=== PATIENT | male | born 1955 | race Caucasian/White ===

== ENCOUNTER 2018-06-28 09:23 | Day surgery (SDC) | payer OTHER ==
[2018-06-27 12:16] VITALS: BMI 31.4
--- NOTE | 2018-06-28 10:28 | HP ---
History & Physical Update - History History: No Change - Physical Physical: No Change - Assessment Assessment: No Change - Plan Plan: No Change (Initial H&P is complete and accurate from 06/23/18. Located in patien't s paper chart. No new complaints or medications. Here today for elective bilateral orchiechtomy w/ Dr. Orr.)
[2018-06-28] MEDS ORDERED: PROPOFOL 20 ML ONE ×2 (12:15)
[2018-06-28] MEDS ORDERED: LIDOCAINE HCL/PF 2% SDV 5ML VIAL ONE (12:15)
[2018-06-28] MEDS ORDERED: ceFAZolin SODIUM 1 GM VIAL IVPB ONE (12:35)
[2018-06-28] MEDS ORDERED: DEXAMETHASONE SOD PHOSPHATE 4 MG/1 ML VIAL ONE (12:42)
[2018-06-28] MEDS ORDERED: ceFAZolin SODIUM 1 GM VIAL ONE (12:42)
[2018-06-28] MEDS ORDERED: GLYCOPYRROLATE 0.2 MG/1 ML VIAL ONE (12:48)
[2018-06-28] MEDS ORDERED: ACETAMINOPHEN INJECTION 100 ML IVPB ONE (12:57)
[2018-06-28] MEDS ORDERED: ONDANSETRON 4 MG/2 ML VIAL IVPUSH PRN (13:04)
[2018-06-28] MEDS ORDERED: KETOROLAC TROMETHAMINE 30 MG/1 ML VIAL ONE (13:08)
[2018-06-28] MEDS ORDERED: METOPROLOL TARTRATE 5 MG/5 ML VIAL ONE (13:10)
[2018-06-28] MEDS ORDERED: BUPIVACAINE HCL/PF 0.5% (5MG/ML) 10 ML VIAL ONE (13:11)
[2018-06-28] MEDS ORDERED: LACTATED RINGERS SOLUTION 1,000 ML IV SCH (13:15)
[2018-06-28] MEDS ORDERED: BUPIVACAINE HCL/PF (5 MG/ML) 30 ML VIAL IJ ONE (13:20)
--- NOTE | 2018-06-28 13:42 | OP ---
Operative Note - Note: Operative Date: 06/28/18 Pre-Operative Diagnosis: Prostate Cancer (recurrent) Operation: Bilateral orchiectomy Post-Operative Diagnosis: Same as Pre-op Surgeon: John Orr Electric Dolly Operator: Pepito Gomez Anesthesiologist/POLICE DETECTIVE: Danielle Henley Anesthesia: General Specimens Removed: bilateral testis Estimated Blood Loss (mls): 5 Fluid Volume Replaced (mls): 400 Operative Report Dictated: Yes
--- NOTE | 2018-06-28 13:43 | SURG ---
Surgery Mat Cutter Note Mat Cutter: Pepito Gomez PA-C Date of Service: 06/28/18 Diagnosis: Prostate Cancer (recurrent) Procedure: Bilateral orchiectomy I was present for the entirety of the operative procedure. For further detail, please refer to operative report. Visit type - Case Type Case Type: Scheduled - New patient This patient is new to me today: Yes Date on this admission: 06/28/18
--- NOTE | 2018-06-28 14:09 | OP ---
DATE OF OPERATION: 06/28/2018 PREOPERATIVE DIAGNOSIS: Metastatic prostate cancer. POSTOPERATIVE DIAGNOSIS: Metastatic prostate cancer. PROCEDURE: Bilateral orchiectomy. ATTENDING SURGEON: John Orr MD. CO-PUNCH OPERATOR: TOMMY Najera. ANESTHESIA: General by LMA. Patient was forwarded to the operating room. SCDs were on the lower extremities. A time-out was performed. IV Ancef was then administered. The scrotum was then prepped and draped in the usual sterile fashion. A small incision was made first over with right hemiscrotum through the skin and dartos until the testis was identified and then brought through the incision. A Lesia clamp was placed through the cord the fatty part of the cord. An additional Lesia was placed the vas and the vasculature. The testis was then excised. Three separate suture ligatures followed by three 2-0 Vicryl ties were placed on each part of the cord. The cord was then examined and any oozing was fulgurated. The cord was then dropped back in the subcutaneous tissue and dartos was then closed with a running 3-0 chromic and the skin brought together with a vertical mattress 3-0 chromic suture. Attention was then directed to the left side where again an incision was made through the skin, dartos, and subcutaneous tissues until the testis was identified and then again brought through the incision. The cord was then divided with a Lesia into 3 separate sections, the vasculature, the vas, and the fatty part of the cord. The testis was excised and the 3 parts of the cord were then separately ligated with a 2-0 Vicryl suture ligature followed by a 2-0 Vicryl tie. Again, the area was examined for any oozing which was fulgurated. The dartos and subcutaneous tissue were brought together with a running 3-0 chromic and the skin brought together with interrupted 3-0 vertical mattress sutures of 3-0 chromic as well. Estimated blood loss for the procedure was minimal. No complications. The patient was also given 15 mL of 0.5% of Marcaine in the upper aspect of the scrotum on the left and on the right side. A sterile dressing was placed over the wound. The patient tolerated the procedure well and left the OR in stable satisfactory condition. MD RICHIE IRBY/[id number]
[2018-06-28 15:32] VITALS: BP 127/80; PULSE 79; TEMP 97.4
--- NOTE | 2018-07-03 13:57 | PATH ---
Surgical Pathology Report Patient Name: CHELSI NGUYEN [facility]. Rec. #: [id number] /Age/Gender: 1955 (Age: 63) / M Account: [id number] Location: [facility] SURGICAL Taken: 06/28/2018 Received: 06/29/2018 Reported: 07/03/2018 Physicians: John Orr MD Specimen(s) Received A: RIGHT TESTICLES B: LEFT TESTICLES Clinical History Metastatic prostate cancer Final Diagnosis A. RIGHT TESTICLE, ORCHIECTOMY: ATROPHIC TESTIS AND EPIDIDYMIS. B. LEFT TESTICLE, ORCHIECTOMY: ATROPHIC TESTIS AND EPIDIDYMIS. Electronically Signed Mariangel Martinez M.D. Gross Description A. Received in formalin labeled "right testicle," is a 14 g orchiectomy specimen including a 3.0 x 1.8 x 1.4 cm testicle with an attached 3.2 x 0.8 x 0.6 cm epididymis and a 3 cm in length attached portion of spermatic cord. The outer surface is jerome and intact. Sectioning reveals unremarkable testicular parenchyma with foci of possible fibrosis. [employer] sections are submitted in 5 cassettes as follows: 1-spermatic cord margin of resection; 2-testicular parenchyma with epididymis; 3-testicular parenchyma with rete testis; 2-6-[id number] testicular parenchyma to outer capsule. B. Received in formalin labeled "left testicle," is a 16 g orchiectomy specimen including a 3.0 x 2.0 x 1.2 cm testicle with an attached 3.2 x 1.1 x 0.8 cm epididymis and a 3.5 cm in length attached portion of spermatic cord. The outer surface is jerome and intact. Sectioning reveals unremarkable testicular parenchyma. [employer] sections are submitted in 5 cassettes as follows: 1-spermatic cord margin of resection; 2-testicular parenchyma with epididymis; 3-testicular parenchyma with rete testis; 4-1-[id number] testicular parenchyma to outer capsule. 06/29/201806/29/2018
== END 2018-06-28 16:00 | disposition home or self-care (01) ==
LOC: JASU-SURG 09:23
PROVIDERS: ATTEND Urology
PROC: 0VR Male Reproductive System, Replacement (ICD-10-PCS; principal; 2018-06-28 09:00)
DX: C61 Malignant neoplasm of prostate (principal); I10 Essential (primary) hypertension; G47.30 Sleep apnea, unspecified; J44.9 Chronic obstructive pulmonary disease, unspecified
CPT/HCPCS: 88305-TC; 94760; J0131

== ENCOUNTER 2022-05-23 01:12 | Inpatient (IN) | payer OTHER ==
[2022-05-23 01:34] VITALS: BMI 21.8
[2022-05-23 01:56] LABS: VENOUS BASE EXCESS 2.7 mmol/L (-2-2); VENOUS O2 SATURATION 88.2 % (70-80); VENOUS PCO2 44.4 mmHg (38-52); VENOUS PH 7.414 (7.310-7.410)
[2022-05-23 02:08] LABS: BASO % 0.7 % (0-2.0); EOS % 4.7 % (0-4.5); HEMATOCRIT 38.2 % (35.4-49); HEMOGLOBIN 12.8 GM/dL (11.7-16.9); LYMPH % 2.2 % (8-40); MCH 30.7 pg (25.7-33.7); MCHC 33.4 g/dl (32.0-35.9); MEAN PLT VOLUME 8.3 fl (7.5-11.1); MONO % 10.1 % (3.8-10.2); NEUT % 82.3 % (42.8-82.8); PLATELET COUNT 317 10^3/uL (134-434); RBC 4.16 M/mm3 (4.00-5.60); RDW 14.2 % (11.9-15.9); WHITE BLOOD COUNT 7.7 K/mm3 (4.0-10.0)
[2022-05-23 02:15] LABS: INR 1.57 (0.83-1.09); PROTHROMBIN TIME (PATIENT) 18.1 SEC (9.7-13.0)
[2022-05-23 02:18] LABS: ACTIVATED PTT 31.3 SECONDS (25.2-36.5); ALBUMIN 1.8 g/dl (3.4-5.0); BLOOD UREA NITROGEN 20.6 mg/dL (7-18); MAGNESIUM 1.6 mg/dL (1.8-2.4)
[2022-05-23 02:21] LABS: CREATININE 0.8 mg/dL (0.55-1.3)
[2022-05-23 02:22] LABS: BILIRUBIN,TOTAL 0.2 mg/dL (0.2-1); TOT PROT 4.8 g/dl (6.4-8.2)
[2022-05-23] MEDS ORDERED: SODIUM CHLORIDE 0.9% 500 ML INFUS.BAG IV ONE (03:29)
[2022-05-23] MEDS ORDERED: MAGNESIUM 1GM/D5W - 1 GM/100 ML IVPB IVPB ONE (04:16)
[2022-05-23 08:35] VITALS: RESP 20; TEMP 97.9
[2022-05-23 11:57] VITALS: BP 104/78; PULSE 107
== END 2022-05-23 11:59 | DRG 920 ==
LOC: JER 01:12 → JERBED 01:15
PROVIDERS: ADMIT Internal Medicine; ATTEND Internal Medicine
DX: T85.898A Other specified complication of other internal prosthetic devices, implants and grafts, initial encounter (principal); J90 Pleural effusion, not elsewhere classified; J98.11 Atelectasis; I25.10 Atherosclerotic heart disease of native coronary artery without angina pectoris; I10 Essential (primary) hypertension; E03.9 Hypothyroidism, unspecified; G47.33 Obstructive sleep apnea (adult) (pediatric); C61 Malignant neoplasm of prostate; Y84.8 Other medical procedures as the cause of abnormal reaction of the patient, or of later complication, without mention of misadventure at the time of the procedure; Z86.711 Personal history of pulmonary embolism
CPT/HCPCS: 0241U-QW; 36415; 71045-TC-FY; 71275-TC; 80053; 82550; 82803; 83735; 84484; 85025; 85610; 85730; 86850; 86900; 86901; 93005; 93010; 99285-25; Q9967

== ENCOUNTER 2022-05-27 22:27 | Inpatient (IN) | payer OTHER ==
[2022-05-27] MEDS ORDERED: SODIUM CHLORIDE 2,313 ML IV ONE (22:44)
[2022-05-27 23:10] LABS: VENOUS BASE EXCESS 3.9 mmol/L (-2-2); VENOUS O2 SATURATION 81.9 % (70-80); VENOUS PCO2 67.4 mmHg (38-52); VENOUS PH 7.303 (7.310-7.410)
[2022-05-27 23:13] LABS: BASO % 0.6 % (0-2.0); EOS % 0.4 % (0-4.5); HEMATOCRIT 42.9 % (35.4-49); HEMOGLOBIN 14.3 GM/dL (11.7-16.9); LYMPH % 1.4 % (8-40); MCH 30.9 pg (25.7-33.7); MCHC 33.4 g/dl (32.0-35.9); MEAN CELL VOLUME 92.6 fl (80-96); MEAN PLT VOLUME 8.4 fl (7.5-11.1); MONO % 8.3 % (3.8-10.2); NEUT % 89.3 % (42.8-82.8); PLATELET COUNT 311 10^3/uL (134-434); RBC 4.64 M/mm3 (4.00-5.60); RDW 13.8 % (11.9-15.9); WHITE BLOOD COUNT 9.6 K/mm3 (4.0-10.0)
[2022-05-27 23:22] LABS: INR 1.97 (0.83-1.09); PROTHROMBIN TIME (PATIENT) 22.7 SEC (9.7-13.0)
[2022-05-27 23:24] LABS: ACTIVATED PTT 34.6 SECONDS (25.2-36.5)
[2022-05-27 23:42] LABS: CHLORIDE 105 mmol/L (98-107); SODIUM 141 mmol/L (136-145)
[2022-05-27 23:44] LABS: CALCIUM 9.3 mg/dL (8.5-10.1)
[2022-05-27 23:45] LABS: ALBUMIN 1.9 g/dl (3.4-5.0); ANION GAP 4 MMOL/L (8-16); CO2 31 mmol/L (21-32); GLUCOSE,RANDOM 118 mg/dL (74-106)
[2022-05-27 23:48] LABS: CREATININE 0.7 mg/dL (0.55-1.3); SGOT/AST 34 U/L (15-37); SGPT/ALT 16 U/L (13-61)
[2022-05-27 23:50] LABS: BILIRUBIN,TOTAL 0.5 mg/dL (0.2-1); TOT PROT 5.3 g/dl (6.4-8.2)
[2022-05-27 23:51] LABS: ALK PHOS 127 U/L (45-117)
[2022-05-28] MEDS ORDERED: PIPERACILLIN/TAZOB 3.375 GM 3.375 GM in DEXTROSE 5%-WATER - 50 ML IVPB ONE (00:35)
[2022-05-28] MEDS ORDERED: VANCOMYCIN 1 GM in D5W (PRE-DOCKED) 1,000 MG/250 ML IVPB ONE (00:35)
[2022-05-28] MEDS ORDERED: VANCOMYCIN/WATER FOR INJ (PEG) 1,000 MG/200 ML BAG IVPB ONE (00:43)
[2022-05-28] MEDS ORDERED: PIPERACILLIN/TAZOB 3.375 GM 3.375 GM/50 ML BAG IVPB ONE (00:43)
[2022-05-28 05:21] LABS: ARTERIAL BLD GAS O2 SATURATION 96.9 % (95-98); ARTERIAL BLOOD GAS BASE EXCESS -2.4 mmol/L (-2-2); ARTERIAL BLOOD GAS PO2 105.8 mmHg (80-100); ARTERIAL BLOOD GAS pH 7.255 (7.350-7.450)
[2022-05-28] MEDS ORDERED: ACETAMINOPHEN 325 MG TABLET (FP) PO PRN (05:22)
[2022-05-28] MEDS ORDERED: MAGNESIUM HYDROX 2400MG/30ML ORAL SUSPENSION 30 ML CUP PO PRN (05:22)
[2022-05-28] MEDS ORDERED: POLYETHYLENE GLYCOL (HEALTHYLAX) 3350 17 GM PACKET PO PRN (05:22)
[2022-05-28 05:31] LABS: ALLENS TEST POSITIVE
[2022-05-28 05:32] LABS: VENT MODE S/T; VENT RATE 14
[2022-05-28] MEDS ORDERED: LACTULOSE 20 GM/30 ML UDC (FOR ORAL USE ONLY) PO PRN (06:24)
[2022-05-28 06:30] LABS: BASO % 0.2 % (0-2.0); HEMOGLOBIN 13.2 GM/dL (11.7-16.9); LYMPH % 1.6 % (8-40); MCH 31.7 pg (25.7-33.7); MCHC 33.9 g/dl (32.0-35.9); MEAN CELL VOLUME 93.6 fl (80-96); MEAN PLT VOLUME 8.7 fl (7.5-11.1); MONO % 9.2 % (3.8-10.2); PLATELET COUNT 272 10^3/uL (134-434); RBC 4.17 M/mm3 (4.00-5.60); RDW 13.8 % (11.9-15.9); WHITE BLOOD COUNT 7.9 K/mm3 (4.0-10.0)
[2022-05-28 06:53] LABS: CALCIUM 9.3 mg/dL (8.5-10.1)
[2022-05-28 06:54] LABS: ALBUMIN 1.8 g/dl (3.4-5.0); BLOOD UREA NITROGEN 17.2 mg/dL (7-18); MAGNESIUM 1.6 mg/dL (1.8-2.4)
[2022-05-28 06:57] LABS: CREATININE 0.7 mg/dL (0.55-1.3); PHOSPHOROUS 3.9 mg/dL (2.5-4.9)
[2022-05-28 06:58] LABS: BILIRUBIN,TOTAL 0.4 mg/dL (0.2-1); TOT PROT 4.8 g/dl (6.4-8.2)
[2022-05-28] MEDS ORDERED: MAG HYDROX/AL HYDROX/SIMETH 30 ML UNIT-DOSE CUP ONE (09:48)
[2022-05-28] MEDS: FUROSEMIDE 20 MG TABLET (FP) PO SCH (11:17)
[2022-05-28] MEDS: ASPIRIN 81 MG CHEWABLE TABLETS PO SCH (11:17)
[2022-05-28] MEDS: ESCITALOPRAM OXALATE 10 MG TABLET PO SCH (11:17)
[2022-05-28] MEDS: APIXABAN 5 MG TABLET PO SCH ×2 (11:17→21:25)
[2022-05-28] MEDS: PANTOPRAZOLE 40 MG TABLET PO SCH (11:17)
[2022-05-28] MEDS: MIDODRINE HCL 5 MG TABLET PO SCH ×3 (14:52→18:28)
[2022-05-28 16:16] VITALS: BMI 21.8
[2022-05-28] MEDS: ATORVASTATIN CA 20 MG TABLET (FP) PO SCH (21:25)
[2022-05-28] MEDS: MIRTAZAPINE 15 MG TABLET (FP) PO SCH (21:25)
[2022-05-29] MEDS: LEVOTHYROXINE NA 25 MCG TABLET (FP) PO SCH (06:15)
[2022-05-29 06:47] LABS: EPI CELLS 7 /uL (0-25.1); HYALINE CASTS 1 /uL (0-3.1); PH,URINE 5.5 (5.0-8.0); URINE APPEARANCE CLEAR; URINE BACTERIA 5 /uL (0-1359); URINE BILIRUBIN NEGATIVE (NEGATIVE); URINE COLOR YELLOW; URINE GLUCOSE (UA) NEGATIVE (NEGATIVE); URINE KETONE NEGATIVE (NEGATIVE); URINE LEUK ESTERASE NEGATIVE (NEGATIVE); URINE NITRITE NEGATIVE (NEGATIVE); URINE PROTEIN 1+ (NEGATIVE); URINE RBC 13 /uL (0-23.9); URINE UROBILINOGEN 0.2 mg/dL (0.2-1.0); URINE WBC 24 /uL (0-25.8)
[2022-05-29 08:50] LABS: BASO % 1.1 % (0-2.0); EOS % 0.8 % (0-4.5); HEMATOCRIT 37.6 % (35.4-49); HEMOGLOBIN 12.3 GM/dL (11.7-16.9); LYMPH % 1.7 % (8-40); MCH 30.6 pg (25.7-33.7); MCHC 32.8 g/dl (32.0-35.9); MEAN CELL VOLUME 93.1 fl (80-96); MEAN PLT VOLUME 8.7 fl (7.5-11.1); MONO % 10.7 % (3.8-10.2); NEUT % 85.7 % (42.8-82.8); PLATELET COUNT 282 10^3/uL (134-434); RBC 4.04 M/mm3 (4.00-5.60); RDW 14.1 % (11.9-15.9); WHITE BLOOD COUNT 7.4 K/mm3 (4.0-10.0)
[2022-05-29 09:06] LABS: ALBUMIN 1.8 g/dl (3.4-5.0); CALCIUM 9.7 mg/dL (8.5-10.1); MAGNESIUM 1.5 mg/dL (1.8-2.4)
[2022-05-29 09:09] LABS: CREATININE 0.7 mg/dL (0.55-1.3)
[2022-05-29 09:11] LABS: BILIRUBIN,TOTAL 0.7 mg/dL (0.2-1); TOT PROT 4.7 g/dl (6.4-8.2)
[2022-05-29] MEDS: APIXABAN 5 MG TABLET PO SCH ×2 (09:31→21:29)
[2022-05-29] MEDS: ASPIRIN 81 MG CHEWABLE TABLETS PO SCH (09:31)
[2022-05-29] MEDS: ESCITALOPRAM OXALATE 10 MG TABLET PO SCH (09:31)
[2022-05-29] MEDS: PANTOPRAZOLE 40 MG TABLET PO SCH (09:31)
[2022-05-29] MEDS: FUROSEMIDE 20 MG TABLET (FP) PO SCH (09:31)
[2022-05-29] MEDS: MIDODRINE HCL 5 MG TABLET PO SCH ×3 (09:33→17:54)
[2022-05-29] MEDS: FLUTICASONE/UMECLIDIN/VILANTER(200-62.5-25 TRELEGY ELLIPTA) INAHLER IH SCH (10:46)
[2022-05-29 11:05] LABS: YEAST PRESENT (NEGATIVE)
[2022-05-29 11:06] LABS: URINE CRYSTALS PRESENT /hpf
[2022-05-29] MEDS: MIRTAZAPINE 15 MG TABLET (FP) PO SCH (21:29)
[2022-05-29] MEDS: ATORVASTATIN CA 20 MG TABLET (FP) PO SCH (21:29)
[2022-05-30] MEDS: LEVOTHYROXINE NA 25 MCG TABLET (FP) PO SCH (07:23)
[2022-05-30] MEDS: ASPIRIN 81 MG CHEWABLE TABLETS PO SCH (09:01)
[2022-05-30] MEDS: APIXABAN 5 MG TABLET PO SCH ×2 (09:02→21:32)
[2022-05-30] MEDS: ESCITALOPRAM OXALATE 10 MG TABLET PO SCH (09:02)
[2022-05-30] MEDS: MIDODRINE HCL 5 MG TABLET PO SCH ×3 (09:02→17:42)
[2022-05-30] MEDS: FUROSEMIDE 20 MG TABLET (FP) PO SCH (09:02)
[2022-05-30] MEDS: PANTOPRAZOLE 40 MG TABLET PO SCH (09:02)
[2022-05-30] MEDS: FLUTICASONE/UMECLIDIN/VILANTER(200-62.5-25 TRELEGY ELLIPTA) INAHLER IH SCH (09:08)
[2022-05-30] MEDS: SODIUM CHLORIDE NASAL SPRAY 44 ML BOTTLE NS PRN (18:08)
[2022-05-30] MEDS: ATORVASTATIN CA 20 MG TABLET (FP) PO SCH (21:32)
[2022-05-30] MEDS: MIRTAZAPINE 15 MG TABLET (FP) PO SCH (21:32)
[2022-05-31 08:35] LABS: HEMOGLOBIN 12.3 GM/dL (11.7-16.9); MCH 31.7 pg (25.7-33.7); MCHC 34.3 g/dl (32.0-35.9); MEAN CELL VOLUME 92.4 fl (80-96); MEAN PLT VOLUME 8.8 fl (7.5-11.1); PLATELET COUNT 301 10^3/uL (134-434); WHITE BLOOD COUNT 8.7 K/mm3 (4.0-10.0)
[2022-05-31 09:21] LABS: CALCIUM 9.6 mg/dL (8.5-10.1)
[2022-05-31 09:22] LABS: ALBUMIN 1.5 g/dl (3.4-5.0); BLOOD UREA NITROGEN 15.1 mg/dL (7-18); MAGNESIUM 1.6 mg/dL (1.8-2.4)
[2022-05-31 09:25] LABS: CREATININE 0.6 mg/dL (0.55-1.3); PHOSPHOROUS 2.9 mg/dL (2.5-4.9)
[2022-05-31 09:26] LABS: BILIRUBIN,TOTAL 0.6 mg/dL (0.2-1); TOT PROT 4.8 g/dl (6.4-8.2)
[2022-05-31] MEDS: ASPIRIN 81 MG CHEWABLE TABLETS PO SCH (11:32)
[2022-05-31] MEDS: FUROSEMIDE 20 MG TABLET (FP) PO SCH (11:32)
[2022-05-31] MEDS: ESCITALOPRAM OXALATE 10 MG TABLET PO SCH (11:32)
[2022-05-31] MEDS: PANTOPRAZOLE 40 MG TABLET PO SCH (11:32)
[2022-05-31] MEDS: APIXABAN 5 MG TABLET PO SCH (11:32)
[2022-05-31] MEDS: MIDODRINE HCL 5 MG TABLET PO SCH ×3 (11:33→18:17)
[2022-05-31] MEDS: FLUTICASONE/UMECLIDIN/VILANTER(200-62.5-25 TRELEGY ELLIPTA) INAHLER IH SCH (11:33)
[2022-05-31] MEDS: SODIUM CHLORIDE NASAL SPRAY 44 ML BOTTLE NS PRN (11:40)
[2022-05-31] MEDS ORDERED: ENOXAPARIN NA (PORCINE) 80 MG/0.8 ML DISP.SYRIN SQ SCH (22:00)
[2022-05-31] MEDS: ENOXAPARIN NA (PORCINE) 80 MG/0.8 ML DISP.SYRIN SQ SCH (23:03)
[2022-05-31] MEDS: ATORVASTATIN CA 20 MG TABLET (FP) PO SCH (23:03)
[2022-05-31] MEDS: MIRTAZAPINE 15 MG TABLET (FP) PO SCH (23:03)
[2022-06-01] MEDS: LEVOTHYROXINE NA 25 MCG TABLET (FP) PO SCH (06:21)
[2022-06-01] MEDS ORDERED: FUROSEMIDE 20 MG TABLET (FP) PO SCH (08:34)
[2022-06-01] MEDS: ESCITALOPRAM OXALATE 10 MG TABLET PO SCH (09:08)
[2022-06-01] MEDS: ASPIRIN 81 MG CHEWABLE TABLETS PO SCH (09:08)
[2022-06-01] MEDS: ENOXAPARIN NA (PORCINE) 80 MG/0.8 ML DISP.SYRIN SQ SCH (09:08)
[2022-06-01] MEDS: MIDODRINE HCL 5 MG TABLET PO SCH ×3 (09:09→17:38)
[2022-06-01] MEDS: FLUTICASONE/UMECLIDIN/VILANTER(200-62.5-25 TRELEGY ELLIPTA) INAHLER IH SCH (09:09)
[2022-06-01] MEDS: PANTOPRAZOLE 40 MG TABLET PO SCH (09:09)
[2022-06-01] MEDS: SODIUM CHLORIDE NASAL SPRAY 44 ML BOTTLE NS PRN (09:10)
[2022-06-01 09:42] LABS: BASO % 0.5 % (0-2.0); EOS % 0.9 % (0-4.5); HEMATOCRIT 35.9 % (35.4-49); HEMOGLOBIN 11.8 GM/dL (11.7-16.9); LYMPH % 1.4 % (8-40); MCH 30.4 pg (25.7-33.7); MCHC 32.8 g/dl (32.0-35.9); MEAN CELL VOLUME 92.7 fl (80-96); MONO % 9.7 % (3.8-10.2); NEUT % 87.5 % (42.8-82.8); PLATELET COUNT 311 10^3/uL (134-434); RBC 3.87 M/mm3 (4.00-5.60); WHITE BLOOD COUNT 7.4 K/mm3 (4.0-10.0)
[2022-06-01 10:09] LABS: ALBUMIN 1.4 g/dl (3.4-5.0); BLOOD UREA NITROGEN 17.5 mg/dL (7-18); CALCIUM 9.3 mg/dL (8.5-10.1); MAGNESIUM 1.6 mg/dL (1.8-2.4)
[2022-06-01 10:12] LABS: CREATININE 0.7 mg/dL (0.55-1.3); PHOSPHOROUS 2.2 mg/dL (2.5-4.9)
[2022-06-01 10:14] LABS: BILIRUBIN,TOTAL 0.4 mg/dL (0.2-1); TOT PROT 4.5 g/dl (6.4-8.2)
[2022-06-01] MEDS: AMINO ACIDS 4.25%/D5W 1,000 ML IV SCH (13:26)
[2022-06-01] MEDS ORDERED: MAGNESIUM SULF 50% (8.12 MEQ/2 ML-1 GM VIAL) IVPB ONE (13:34)
[2022-06-01] MEDS: ATORVASTATIN CA 20 MG TABLET (FP) PO SCH (21:21)
[2022-06-01] MEDS: MIRTAZAPINE 15 MG TABLET (FP) PO SCH (21:21)
[2022-06-02 01:12] VITALS: RESP 18
[2022-06-02] MEDS ORDERED: ONDANSETRON 4 MG/2 ML VIAL IVPUSH ONE (02:45)
[2022-06-02 09:23] LABS: BASO % 0.3 % (0-2.0); EOS % 0.3 % (0-4.5); HEMATOCRIT 35.7 % (35.4-49); HEMOGLOBIN 12.1 GM/dL (11.7-16.9); LYMPH % 1.2 % (8-40); MCHC 33.8 g/dl (32.0-35.9); MEAN CELL VOLUME 91.9 fl (80-96); MEAN PLT VOLUME 8.6 fl (7.5-11.1); MONO % 11.6 % (3.8-10.2); NEUT % 86.6 % (42.8-82.8); PLATELET COUNT 309 10^3/uL (134-434); RBC 3.89 M/mm3 (4.00-5.60); RDW 14.2 % (11.9-15.9); WHITE BLOOD COUNT 8.5 K/mm3 (4.0-10.0)
[2022-06-02 09:44] LABS: ALBUMIN 1.4 g/dl (3.4-5.0); CALCIUM 9.3 mg/dL (8.5-10.1); MAGNESIUM 1.9 mg/dL (1.8-2.4)
[2022-06-02 09:47] LABS: CREATININE 0.7 mg/dL (0.55-1.3); PHOSPHOROUS 1.8 mg/dL (2.5-4.9)
[2022-06-02 09:49] LABS: TOT PROT 4.5 g/dl (6.4-8.2)
[2022-06-02 09:51] LABS: BILIRUBIN,TOTAL 0.4 mg/dL (0.2-1)
[2022-06-02] MEDS: PANTOPRAZOLE 40 MG TABLET PO SCH (10:18)
[2022-06-02] MEDS: ESCITALOPRAM OXALATE 10 MG TABLET PO SCH (10:18)
[2022-06-02] MEDS: ASPIRIN 81 MG CHEWABLE TABLETS PO SCH (10:18)
[2022-06-02] MEDS: FLUTICASONE/UMECLIDIN/VILANTER(200-62.5-25 TRELEGY ELLIPTA) INAHLER IH SCH (10:18)
[2022-06-02] MEDS: MIDODRINE HCL 5 MG TABLET PO SCH ×3 (10:18→17:26)
[2022-06-02] MEDS ORDERED: ENOXAPARIN NA (PORCINE) 80 MG/0.8 ML DISP.SYRIN SQ SCH (10:45)
[2022-06-02 12:23] LABS: ARTERIAL BLD GAS O2 SATURATION 95.5 % (95-98); ARTERIAL BLOOD GAS BASE EXCESS 6.6 mmol/L (-2-2); ARTERIAL BLOOD GAS PO2 76.7 mmHg (80-100); ARTERIAL BLOOD GAS pH 7.426 (7.350-7.450)
[2022-06-02 12:24] LABS: ALLENS TEST POSITIVE
[2022-06-02 12:25] LABS: VENT MODE ST; VENT RATE 10
[2022-06-02] MEDS: AMINO ACIDS 4.25%/D5W 1,000 ML IV SCH (13:02)
[2022-06-02] MEDS ORDERED: NAPH,MB-DB/K PH,MBDB POWDER PACKET PO ONE (15:02)
[2022-06-02] MEDS ORDERED: PIPERACILLIN/TAZOB 3.375 GM 3.375 GM in DEXTROSE 5%-WATER - 50 ML IVPB SCH ×2 (19:45→20:00)
[2022-06-02] MEDS ORDERED: morphine SULFATE 4 MG/ML VIAL ONE (21:10)
[2022-06-02] MEDS ORDERED: morphine SULFATE 4 MG/ML VIAL IVPUSH ONE (21:11)
[2022-06-02] MEDS ORDERED: CHLORHEXIDINE GLUCONATE 4% CLEANSER FOR DECOLONIZATION TP SCH (22:00)
[2022-06-02] MEDS ORDERED: MUPIROCIN 2% TOPICAL OINTMENT FOR DECOLONIZATION NS SCH (22:00)
[2022-06-02] MEDS ORDERED: MORPHINE SULFATE/0.9% NACL/PF 100 MG/100 ML BAG IVPB SCH (22:00)
[2022-06-03 04:22] VITALS: BP 57/35; PULSE 115
[2022-06-03 04:23] VITALS: TEMP 97
== END 2022-06-03 05:25 | disposition expired | DRG 180 ==
LOC: JER 22:27 → JERBED 05-28 04:53 → J6S 05-28 11:00 → JICU 06-02 20:50
PROVIDERS: ADMIT Internal Medicine; ATTEND Internal Medicine Pulmonary Disease
DX: C78.01 Secondary malignant neoplasm of right lung (principal); J96.21 Acute and chronic respiratory failure with hypoxia; J96.22 Acute and chronic respiratory failure with hypercapnia; J91.0 Malignant pleural effusion; J98.11 Atelectasis; E87.29 Other acidosis; C79.51 Secondary malignant neoplasm of bone; T85.698A Other mechanical complication of other specified internal prosthetic devices, implants and grafts, initial encounter; C78.02 Secondary malignant neoplasm of left lung; C61 Malignant neoplasm of prostate; I25.10 Atherosclerotic heart disease of native coronary artery without angina pectoris; G47.30 Sleep apnea, unspecified; E03.9 Hypothyroidism, unspecified; E78.5 Hyperlipidemia, unspecified; I10 Essential (primary) hypertension; Z86.711 Personal history of pulmonary embolism; Y84.8 Other medical procedures as the cause of abnormal reaction of the patient, or of later complication, without mention of misadventure at the time of the procedure; Z66 Do not resuscitate
CPT/HCPCS: 0241U-QW; 36415; 36600; 71045-TC-FY; 71275-TC; 80053; 81003; 82308; 82550; 82553; 82803; 83605; 83735; 84100; 84484; 85025; 85027; 85610; 85730; 86140; 86850; 86900; 86901; 87040; 87086; 93005; 93010; 94660; 99285-25; Q9967